=== PATIENT | male | born 1995 | race Caucasian/White ===

== ENCOUNTER 2018-01-26 14:58 | Emergency (ER) | payer OTHER, MEDICAID ==
[~2018-01-26] VITALS: Ht 160 cm; Wt 69.4 kg
[2018-01-26 15:07] VITALS: Ht 160 cm; Wt 69.4 kg
[2018-01-26 17:11] VITALS: BP 148/71
== END 2018-01-26 17:11 | disposition home or self-care (01) ==
LOC: ED 14:58
DX: S93.401A Sprain of unspecified ligament of right ankle, initial encounter (principal); X50.1XXA Overexertion from prolonged static or awkward postures, initial encounter; Y93.89 Activity, other specified; Y92.89 Other specified places as the place of occurrence of the external cause; Y99.8 Other external cause status